=== PATIENT | female | born 2000 | race Hispanic/Latino ===

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

== ENCOUNTER 2022-03-27 13:06 | Emergency (ER) | payer OTHER ==
[~2022-03-27] VITALS: Ht 167.6 cm; Wt 90.7 kg
[2022-03-27 13:10] VITALS: BP 142/94
[2022-03-27] MEDS ORDERED: IBUPROFEN 600 MG TABLET PO ONE (14:00)
[2022-03-27] MEDS ORDERED: AZIT500T2 PO (14:04)
[2022-03-27] MEDS ORDERED: IBUP-2070 PO (14:04)
== END 2022-03-27 14:19 | disposition home or self-care (01) ==
LOC: EDH 13:06
DX: J03.90 Acute tonsillitis, unspecified (principal); Z88.0 Allergy status to penicillin; Z79.1 Long term (current) use of non-steroidal anti-inflammatories (NSAID)
CPT/HCPCS: 87804; 87880